=== PATIENT | female | born 1945 | race Caucasian/White ===

== ENCOUNTER 2017-10-13 07:00 | Inpatient (IN) | payer OTHER, BC ==
[2017-10-13] MEDS ORDERED: ceFAZolin SODIUM 1 GM VIAL ONE (07:08)
[2017-10-13] MEDS ORDERED: VANCOMYCIN 1,000 MG VIAL (RESTRICTED TO ID ONLY) ONE ×2 (07:08→09:28)
[2017-10-13] MEDS ORDERED: oxyCODONE HCL 10 MG SUSTAINED ACTING TABLET ONE (07:19)
[2017-10-13] MEDS ORDERED: CELECOXIB 200 MG CAPSULE ONE (07:19)
[2017-10-13 08:08] VITALS: BMI 34.9
[2017-10-13 08:18] LABS: INR 1.05 (0.82-1.09); PROTHROMBIN TIME (PATIENT) 11.7 SEC (10.2-13.0)
[2017-10-13] MEDS ORDERED: MIDAZOLAM HCL 2 MG/2 ML SINGLE DOSE VIAL ONE (08:48)
[2017-10-13] MEDS ORDERED: SODIUM CHLORIDE 0.9% P/F 10 ML VIAL IJ ONE (08:48)
[2017-10-13] MEDS ORDERED: DEXAMETHASONE SOD PHOSPHATE/PF 10 MG/ML SDV ONE (08:48)
[2017-10-13] MEDS ORDERED: ROPIVACAINE HCL 0.5% 30ML VIAL ONE (08:48)
[2017-10-13] MEDS ORDERED: ROPIVICAINE 0.2%/MORPH PF/KETOROLAC - 51ML DISP.SYRINGE IA ONE (09:15)
[2017-10-13] MEDS ORDERED: CELECOXIB 200 MG CAPSULE PO ONE (09:15)
[2017-10-13] MEDS ORDERED: CEFAZOLIN 2 GM in DEXTROSE 5%-WATER - 50 ML IVPB ONE (09:15)
[2017-10-13] MEDS ORDERED: TRANEXAMIC ACID 1000 MG/10 ML VIAL IVPUSH ONE (09:15)
[2017-10-13] MEDS ORDERED: VANCOMYCIN 500 MG in DEXTROSE 5%-WATER - 250 ML IVPB ONE (09:15)
[2017-10-13] MEDS ORDERED: oxyCODONE HCL 10 MG SUSTAINED ACTING TABLET PO ONE (09:15)
[2017-10-13] MEDS ORDERED: BUPIVACAINE HCL/PF 0.5% (5MG/ML) 10 ML VIAL ONE (09:36)
[2017-10-13] MEDS ORDERED: PROPOFOL 20 ML ONE ×2 (10:13)
[2017-10-13] MEDS ORDERED: BENZOIN/ALOE VERA/STORAX/TOLU 58 ML BOTTLE ONE (11:40)
[2017-10-13] MEDS ORDERED: ONDANSETRON 4 MG/2 ML VIAL IVPUSH PRN ×2 (12:28→12:34)
[2017-10-13] MEDS ORDERED: oxyCODONE HCL 5 MG TABLET PO PRN (12:28)
[2017-10-13] MEDS ORDERED: PROMETHAZINE HCL 25 MG/1 ML VIAL IVPUSH PRN (12:28)
--- NOTE | 2017-10-13 12:33 | OP ---
Operative Note - Note: Operative Date: 10/13/17 Pre-Operative Diagnosis: Right knee DJD Operation: Right total knee replacement Implants: [employer]. Femur - 4. Tibia - 4. Poly - 9mm, PS. Patella - 27mm Surgeon: Eric Paris [employer] Assessment: Vishal Paris Anesthesiologist/COUNTY SURVEYOR: Aram Massey Anesthesia: Spinal Specimens Removed: Bone, soft tissue Drains & Tubes with Location: [place], Right knee Operative Report Dictated: Yes
[2017-10-13] MEDS ORDERED: MAG HYDROX/AL HYDROX/SIMETH 30 ML UNIT-DOSE CUP PO PRN (12:34)
[2017-10-13] MEDS ORDERED: LACTATED RINGERS SOLUTION 1,000 ML IV SCH (12:45)
[2017-10-13] MEDS ORDERED: WARFARIN SODIUM 4 MG PO SCH (12:45)
[2017-10-13] MEDS: ACETAMINOPHEN 325 MG TABLET (FP) PO SCH ×2 (13:00→21:48)
--- NOTE | 2017-10-13 14:22 | HP ---
HISTORY OF PRESENT ILLNESS Patient is a 71 y/o female with a past medical history of OA, EVITA (bipap), asthma, protein c deficency, DVT, PE, (IVC filter on coumadin), and HLD. Patient is s/p right total knee replacement, POD #0, Dr Paris PCP: Dr Huggins miller distillery/oncologist: Dr Hernandez Recent travel: none Family History: non contributory to this admission Social History: resides at home Smoking: none Alcohol: none Drugs: none REVIEW OF SYSTEMS CONSTITUTIONAL: Absent: fever, chills, diaphoresis, generalized weakness, malaise, loss of appetite, weight change HEENT: Absent: rhinorrhea, nasal congestion, throat pain, throat swelling, difficulty swallowing, mouth swelling, ear pain, eye pain, visual changes CARDIOVASCULAR: Absent: chest pain, syncope, palpitations, irregular heart rate, lightheadedness , peripheral edema RESPIRATORY: Absent: cough, shortness of breath, dyspnea with exertion, orthopnea, wheezing, stridor, hemoptysis GASTROINTESTINAL: Absent: abdominal pain, abdominal distension, nausea, vomiting, diarrhea, constipation, melena, hematochezia GENITOURINARY: Absent: dysuria, frequency, urgency, hesitancy, hematuria, flank pain, genital pain MUSCULOSKELETAL: Present: right knee pain Absent: myalgia, arthralgia, joint swelling, back pain, neck pain SKIN: Absent: rash, itching, pallor HEMATOLOGIC/IMMUNOLOGIC: Absent: easy bleeding, easy bruising, lymphadenopathy, frequent infections ENDOCRINE: Absent: unexplained weight gain, unexplained weight loss, heat intolerance, cold intolerance NEUROLOGIC: Absent: headache, focal weakness or paresthesias, dizziness, unsteady gait, seizure, mental status changes, bladder or bowel incontinence PSYCHIATRIC: Absent: anxiety, depression, suicidal or homicidal ideation, hallucinations. PHYSICAL EXAMINATION: Vital Signs Temperature 97.9 F 10/13/17 13:10 Pulse Rate 54 L 10/13/17 13:10 Respiratory Rate 18 10/13/17 13:10 Blood Pressure 124/63 10/13/17 13:10 O2 Sat by Pulse Oximetry (%) 97 10/13/17 12:55 GENERAL: Awake, alert, and fully oriented, in no acute distress. HEAD: Normal with no signs of trauma. EYES: Pupils equal, round and reactive to light, extraocular movements intact, sclera anicteric, conjunctiva clear. No lid lag. EARS, NOSE, THROAT: Ears normal, nares patent, oropharynx clear without exudates. Moist mucous membranes. NECK: Normal range of motion, supple without lymphadenopathy, JVD, or masses. LUNGS: Breath sounds equal, clear to auscultation bilaterally. No wheezes, and no crackles. No accessory muscle use. HEART: Regular rate and rhythm, normal S1 and S2 without murmur, rub or gallop. ABDOMEN: Soft, nontender, not distended, normoactive bowel sounds, no guarding, no rebound, no masses. No hepatomegaly or splenomegaly. MUSCULOSKELETAL: Normal range of motion at all joints. No bony deformities or tenderness. No CVA tenderness. UPPER EXTREMITIES: 2+ pulses, warm, well-perfused. No cyanosis. No clubbing. No peripheral edema. LOWER EXTREMITIES: 2+ pulses, warm, well-perfused. No calf tenderness. No peripheral edema. RIGHT LOWER EXTREMITY: dressing CDI, hemovac noted, serrous sangenous drainage, scd/moshe, less than 3 second capillary refill, + 3 pedal pulse NEUROLOGICAL: Cranial nerves II-XII intact. Normal speech. Normal gait. PSYCHIATRIC: Cooperative. Good eye contact. Appropriate mood and affect. SKIN: Warm, dry, normal turgor, no rashes or lesions noted, normal capillary refill. Active Medications Generic Name Dose Route Start Last Admin Trade Name Freq PRN Reason Stop Dose Admin Acetaminophen 650 mg 10/13/17 20:00 Tylenol - PO 10/16/17 19:59 Q6H ANDREA Al Hydroxide/Mg Hydroxide 30 ml 10/13/17 12:34 Mylanta Oral Suspension - PO Q4H PRN DYSPEPSIA Enoxaparin Sodium 80 mg 10/14/17 10:00 Lovenox - SQ DAILY ANDREA Fentanyl 50 mcg 10/13/17 12:28 Sublimaze Injection - IVPUSH [id number] PRN PAIN Gabapentin 300 mg 10/13/17 22:00 Neurontin - PO BID ANDREA Cefazolin Sodium 2 gm/ 50 mls @ 200 mls/hr 10/13/17 18:00 Dextrose IVPB 10/14/17 02:14 Q8H-IV ANDREA Lactated Ringer's 1,000 mls @ 125 mls/hr 10/13/17 12:45 Lactated Ringers Solution IV 10/14/17 06:00 ASDIR ANDREA Magnesium Hydroxide 30 ml 10/13/17 12:34 Milk Of Magnesia - PO PRN PRN CONSTIPATION Montelukast Sodium 10 mg 10/13/17 22:00 Singulair - PO HS [facility] Non-Formulary Medication 4 mg 10/13/17 12:45 Warfarin Sodium [Warfarin Sodium] PO Q48H ANDREA Ondansetron HCl 4 mg 10/13/17 12:28 Zofran Injection IVPUSH Q6H PRN NAUSEA AND/OR VOMITING Ondansetron HCl 4 mg 10/13/17 12:34 Zofran Injection IVPUSH Q6H PRN NAUSEA Oxycodone HCl 10 mg 10/13/17 12:28 Roxicodone - PO Q3H PRN PAIN LEVEL 6-10 Oxycodone HCl 5 mg 10/13/17 12:28 Roxicodone - PO Q3H PRN PAIN LEVEL 1-5 Oxycodone HCl 10 mg 10/13/17 22:00 Oxycontin - PO 10/16/17 12:29 BID [facility] Pantoprazole Sodium 40 mg 10/14/17 10:00 Protonix - PO DAILY [facility] Promethazine HCl 12.5 mg 10/13/17 12:28 Phenergan Injection - IVPUSH Q6H PRN NAUSEA-FOR RESCUE AFTER 15 MIN Senna/Docusate Sodium 2 tablet 10/13/17 22:00 Pericolace - PO BID [facility] Warfarin Sodium 5 mg 10/13/17 22:00 Coumadin - PO HS [facility] ASSESSMENT/PLAN: 1) MS: right total knee replacement - prn pain medication - PT as per orthopedist - strict monitoring of hemovac 2) heme/onc protein c deficency - hx of dvt/pe with ivc filter, continue lovenox with bridge to coumadin - repeat inr in am 3) pulm evita - continue bipap at night asthma - no acute excerbation at this time - continue prn albuterol f/e/n - low sodium diet - replete lytes prn ppx - lovenox with coumadin bridge - protonix - scd/moshe - pt dispo: requires inpatient admission Visit type - Case Type Case Type: Scheduled Admission - Emergency Emergency Visit: No - New patient This patient is new to me today: Yes Date on this admission: 10/13/17 - Critical Care Critical Care patient: No
[2017-10-13] MEDS: CEFAZOLIN 2 GM/D5W 2 GM/50 ML ML IVPB SCH (17:31)
[2017-10-13] MEDS: oxyCODONE HCL 5 MG TABLET PO PRN ×2 (17:32→21:46)
[2017-10-13] MEDS: WARFARIN NA 5 MG TABLET (UD) PO SCH (17:32)
--- NOTE | 2017-10-13 20:21 | OP ---
DATE OF OPERATION: 10/13/2017 SURGEON: Eric Paris MD INFORMATION ASSISTANT: Vishal Paris MD PREOPERATIVE DIAGNOSIS: Tricompartment osteoarthritis, right knee. POSTOPERATIVE DIAGNOSIS: Tricompartment osteoarthritis, right knee. OPERATION PERFORMED: Right cemented posterior-stabilized total knee arthroplasty (Ona). ANESTHESIA: General. ANTIBIOTICS GIVEN: Kefzol 2 g, vancomycin 1 g preoperative; Kefzol 1 g given at the time of release of the tourniquet. TOURNIQUET TIME: 70 minutes. PROCEDURE: Patient correctly identified, brought to the operating room. Right lower extremity was prepped, free draped in the routine manner with Betadine scrub solution, wiped off with alcohol, DuraPrep applied. A fixed varus deformity of 20 degrees noted. Midline incision was utilized. Longitudinal incision made in the quadriceps tendon along the parapatellar margins the medial aspect of the tibial tubercle. The patella was capsized laterally. The patellar cut was made first from the patellar ligament to the quadriceps tendon. The severe tricompartment osteoarthritis readily noted. The cruciate ligaments were incised. The tibial cuts were made with the appropriate jig system. The measurement for femoral component was size 4 femur. Size 4 tibial baseplate was utilized. After the appropriate broaching and insertion of the proximal drill hole into the tibia, the bone bed was thoroughly lavaged, and all 3 components cemented into position. All extraneous cement was removed after cement had cured. That is, the patella which measured size 27 mm, femur size 4, tibia size 4, and a size 9 polyethylene posterior-stabilized polyethylene liner was inserted to the tibial tray at the end of all measurements. The wounds were thoroughly lavaged. All bone cuts were sent to the lab. The tissues were closed as follows: Quadriceps tendon 1 Vicryl, fascia 1 Vicryl, subcutaneous 1 and 2-0 Vicryl, skin 3-0 Monocryl with Steri-Strips. No drains. Operation went well, no complications. Postoperative x-rays revealed excellent alignment and positioning of the implants. MD EMERITA England/[id number]
[2017-10-13] MEDS: SENNOSIDES/DOCUSATE COMBO (SENNA PLUS) TABLET (UD) PO SCH (21:47)
[2017-10-13] MEDS: oxyCODONE HCL 10 MG SUSTAINED ACTING TABLET PO SCH (21:47)
[2017-10-13] MEDS: GABAPENTIN 300 MG CAPSULE (FP) PO SCH (21:47)
[2017-10-13] MEDS: MONTELUKAST NA 10 MG TABLET PO SCH (21:47)
[2017-10-14] MEDS: CEFAZOLIN 2 GM/D5W 2 GM/50 ML ML IVPB SCH (02:00)
[2017-10-14] MEDS: ACETAMINOPHEN 325 MG TABLET (FP) PO SCH ×5 (02:00→20:15)
[2017-10-14] MEDS ORDERED: PT OWN MED DRAWER 7, Y5N ONE (05:46)
[2017-10-14] MEDS: oxyCODONE HCL 5 MG TABLET PO PRN ×2 (06:59→21:13)
--- NOTE | 2017-10-14 08:35 | PN ---
Physical Exam: SUBJECTIVE: Patient seen and examined, sitting in bedside chair, reports minimal pain to the right lower extremity denies any chest pain or shortness of breath. OBJECTIVE:Patient is a 71 y/o female with a past medical history of OA, GRISELDA ( bipap), asthma, protein c deficiency, DVT, PE, (IVC filter on coumadin), and HLD. Patient is s/p right total knee replacement, POD #1, Dr Paris Vital Signs Period Temp Pulse Resp BP Sys/Núñez Pulse Ox Last 24 Hr 97.7 F-98.7 F 52-73 16-19 103-140/58-73 93-98 Intake & Output 10/13/17 10/14/17 10/14/17 23:59 07:59 15:59 Intake Total 1800 Output Total 840 200 Balance 960 -200 Intake: IV 750 Lactated Ringers Solution 750 1,000 ml @ 125 mls/hr IV ASDIR ANDREA Rx#: [id number] IVPB 50 Oral 1000 Output: Drainage 240 200 Right Knee 240 200 Urine 600 Void 600 Other: Voiding Method Toilet Toilet Toilet # Unmeasured Voids Void 1 GENERAL: The patient is awake, alert, and fully oriented, in no acute distress. HEAD: Normal with no signs of trauma. EYES: PERRL, extraocular movements intact, sclera anicteric, conjunctiva clear. No ptosis. ENT: Ears normal, nares patent, oropharynx clear without exudates, moist mucous membranes. NECK: Trachea midline, full range of motion, supple. LUNGS: Breath sounds equal, clear to auscultation bilaterally, no wheezes, no crackles, no accessory muscle use. HEART: Regular rate and rhythm, S1, S2 without murmur, rub or gallop. ABDOMEN: Soft, nontender, nondistended, normoactive bowel sounds, no guarding, no rebound, no hepatosplenomegaly, no masses. EXTREMITIES: 2+ pulses, warm, well-perfused, no edema. RIGHT LOWER EXTREMITY: scant blood noted to dressing, hemovac serrous drainage noted NEUROLOGICAL: Cranial nerves II through XII grossly intact. Normal speech, gait not observed. PSYCH: Normal mood, normal affect. SKIN: Warm, dry, normal turgor, no rashes or lesions noted CBC WBC 10.6 K/mm3 (4.0-10.8) 10/14/17 08:00 RBC 4.24 M/mm3 (3.60-5.2) 10/14/17 08:00 Hgb 12.2 GM/dl (10.7-15.3) 10/14/17 08:00 Hct 37.5 % (32.4-45.2) 10/14/17 08:00 MCV 88.6 fl (80-96) 10/14/17 08:00 MCH 28.8 pg (25.7-33.7) 10/14/17 08:00 MCHC 32.5 g/dl (32.0-36.0) 10/14/17 08:00 RDW 13.5 % (11.6-15.6) 10/14/17 08:00 Plt Count 176 K/MM3 (134-434) 10/14/17 08:00 MPV 9.1 fl (7.5-11.1) 10/14/17 08:00 Active Medications Generic Name Dose Route Start Last Admin Trade Name Chivoq PRN Reason Stop Dose Admin Acetaminophen 650 mg 10/13/17 20:00 10/14/17 08:29 Tylenol - PO 10/16/17 19:59 Not Given Q6H ANDREA Al Hydroxide/Mg Hydroxide 30 ml 10/13/17 12:34 Mylanta Oral Suspension - PO Q4H PRN DYSPEPSIA Enoxaparin Sodium 80 mg 10/14/17 10:00 Lovenox - SQ DAILY ANDREA Fentanyl 50 mcg 10/13/17 12:28 Sublimaze Injection - IVPUSH [id number] PRN PAIN Gabapentin 300 mg 10/13/17 22:00 10/13/17 21:47 Neurontin - PO 300 mg BID ANDREA Administration Magnesium Hydroxide 30 ml 10/13/17 12:34 Milk Of Magnesia - PO PRN PRN CONSTIPATION Montelukast Sodium 10 mg 10/13/17 22:00 10/13/17 21:47 Singulair - PO 10 mg HS ANDREA Administration Ondansetron HCl 4 mg 10/13/17 12:28 Zofran Injection IVPUSH Q6H PRN NAUSEA AND/OR VOMITING Ondansetron HCl 4 mg 10/13/17 12:34 Zofran Injection IVPUSH Q6H PRN NAUSEA Oxycodone HCl 10 mg 10/13/17 12:28 10/14/17 06:59 Roxicodone - PO 10 mg Q3H PRN Administration PAIN LEVEL 6-10 Oxycodone HCl 5 mg 10/13/17 12:28 Roxicodone - PO Q3H PRN PAIN LEVEL 1-5 Oxycodone HCl 10 mg 10/13/17 22:00 10/13/17 21:47 Oxycontin - PO 10/16/17 12:29 10 mg BID ANDREA Administration Pantoprazole Sodium 40 mg 10/14/17 10:00 Protonix - PO DAILY ANDREA Promethazine HCl 12.5 mg 10/13/17 12:28 Phenergan Injection - IVPUSH Q6H PRN NAUSEA-FOR RESCUE AFTER 15 MIN Senna/Docusate Sodium 2 tablet 10/13/17 22:00 10/13/17 21:47 Pericolace - PO 2 tablet BID ANDREA Administration Warfarin Sodium 5 mg 10/13/17 18:00 10/13/17 17:32 Coumadin - PO 5 mg DAILY@1800 ANDREA Administration ASSESSMENT/PLAN: 1) MS: right total knee replacement, POD #1 - prn pain medication - PT as per orthopedist - hemovac drainage 200ml on the overnight, hgb 10 stable, close monitoring of CBC 2) heme/onc protein c deficency - hx of dvt/pe with ivc filter, continue lovenox with bridge to coumadin - inr 1.1, continue coumadin 5mg and lovenox, repeat inr in AM 3) pulm griselda - continue bipap at night asthma - no acute excerbation at this time - continue prn albuterol f/e/n - low sodium diet - replete lytes prn ppx - lovenox with coumadin bridge - protonix - scd/moshe - pt dispo: requires inpatient admission Visit type - Emergency Visit Emergency Visit: No - New Patient This patient is new to me today: No - Critical Care Critical Care patient: No - Discharge Referral Referred to [facility] Med P.C[facility] No
[2017-10-14 08:44] LABS: ANION GAP 8 (8-16); BLOOD UREA NITROGEN 19 mg/dl (7-18); CALCIUM 8.7 mg/dl (8.4-10.2); CHLORIDE 103 mmol/L (98-107); CO2 26 mmol/L (22-28); CREATININE 0.7 mg/dl (0.6-1.3); GLUCOSE,RANDOM 136 mg/dl (74-106); POTASSIUM 4.4 mmol/L (3.5-5.1); SODIUM 137 mmol/L (136-145)
[2017-10-14] MEDS: SENNOSIDES/DOCUSATE COMBO (SENNA PLUS) TABLET (UD) PO SCH ×2 (09:08→21:14)
[2017-10-14] MEDS: PANTOPRAZOLE 40 MG TABLET (FP) PO SCH (09:08)
[2017-10-14] MEDS: GABAPENTIN 300 MG CAPSULE (FP) PO SCH ×2 (09:08→21:12)
[2017-10-14] MEDS: oxyCODONE HCL 10 MG SUSTAINED ACTING TABLET PO SCH ×2 (09:08→21:13)
[2017-10-14] MEDS: ENOXAPARIN NA (PORCINE) 80 MG/0.8 ML DISP.SYRIN SQ SCH (09:09)
[2017-10-14 09:10] LABS: HEMATOCRIT 37.5 % (32.4-45.2); HEMOGLOBIN 12.2 GM/dl (10.7-15.3); MCH 28.8 pg (25.7-33.7); MCHC 32.5 g/dl (32.0-36.0); MEAN CELL VOLUME 88.6 fl (80-96); MEAN PLT VOLUME 9.1 fl (7.5-11.1); PLATELET COUNT 176 K/MM3 (134-434); RBC 4.24 M/mm3 (3.60-5.2); RDW 13.5 % (11.6-15.6); WHITE BLOOD COUNT 10.6 K/mm3 (4.0-10.8)
[2017-10-14 09:12] LABS: INR 1.14 (0.82-1.09); PROTHROMBIN TIME (PATIENT) 12.7 SEC (10.2-13.0)
--- NOTE | 2017-10-14 11:02 | PN ---
Progress Note (short form) - Note Progress Note: 71F POD1 s/p right TKR under spinal anesthetic with peripheral nerve blocks for post operative pain control. Pain is well controlled, reports no anesthetic complications. Sensory and motor function intact in bilateral lower extremities.
[2017-10-14] MEDS: WARFARIN NA 5 MG TABLET (UD) PO SCH (17:33)
[2017-10-14] MEDS: MAGNESIUM HYDROX 2400MG/30ML ORAL SUSPENSION 30 ML CUP PO PRN (17:34)
[2017-10-14] MEDS: MONTELUKAST NA 10 MG TABLET PO SCH (21:14)
[2017-10-15] MEDS: ACETAMINOPHEN 325 MG TABLET (FP) PO SCH ×4 (01:13→20:50)
[2017-10-15] MEDS: oxyCODONE HCL 5 MG TABLET PO PRN ×3 (07:27→16:19)
[2017-10-15 08:46] LABS: HEMATOCRIT 33.8 % (32.4-45.2); HEMOGLOBIN 11.5 GM/dl (10.7-15.3); MCH 30.3 pg (25.7-33.7); MCHC 34.1 g/dl (32.0-36.0); MEAN PLT VOLUME 9.3 fl (7.5-11.1); PLATELET COUNT 165 K/MM3 (134-434); RDW 13.7 % (11.6-15.6); WHITE BLOOD COUNT 7.7 K/mm3 (4.0-10.8)
[2017-10-15] MEDS: PANTOPRAZOLE 40 MG TABLET (FP) PO SCH (09:06)
[2017-10-15] MEDS: MAGNESIUM HYDROX 2400MG/30ML ORAL SUSPENSION 30 ML CUP PO PRN ×2 (09:06→18:57)
[2017-10-15] MEDS: SENNOSIDES/DOCUSATE COMBO (SENNA PLUS) TABLET (UD) PO SCH ×2 (09:07→21:28)
[2017-10-15] MEDS: ENOXAPARIN NA (PORCINE) 80 MG/0.8 ML DISP.SYRIN SQ SCH (09:07)
[2017-10-15] MEDS: GABAPENTIN 300 MG CAPSULE (FP) PO SCH ×2 (09:07→21:29)
--- NOTE | 2017-10-15 10:46 | PN ---
Physical Exam: SUBJECTIVE: Patient seen and examined OBJECTIVE: Vital Signs Period Temp Pulse Resp BP Sys/Núñez Pulse Ox Last 24 Hr 97.8 F-98.9 F 57-61 18-20 120-129/57-64 94-96 GENERAL: The patient is awake, alert, and fully oriented, in no acute distress. HEAD: Normal with no signs of trauma. EYES: PERRL, extraocular movements intact, sclera anicteric, conjunctiva clear. No ptosis. ENT: Ears normal, nares patent, oropharynx clear without exudates, moist mucous membranes. NECK: Trachea midline, full range of motion, supple. LUNGS: Breath sounds equal, clear to auscultation bilaterally, no wheezes, no crackles, no accessory muscle use. HEART: Regular rate and rhythm, S1, S2 without murmur, rub or gallop. ABDOMEN: Soft, nontender, nondistended, normoactive bowel sounds, no guarding, no rebound, no hepatosplenomegaly, no masses. EXTREMITIES: 2+ pulses, warm, well-perfused, no edema. NEUROLOGICAL: Cranial nerves II through XII grossly intact. Normal speech, gait not observed. PSYCH: Normal mood, normal affect. SKIN: Warm, dry, normal turgor, no rashes or lesions noted Laboratory Results - last 24 hr 10/15/17 07:55 WBC 7.7 RBC 3.80 Hgb 11.5 Hct 33.8 MCV 89.0 MCH 30.3 MCHC 34.1 RDW 13.7 Plt Count 165 MPV 9.3 Active Medications Generic Name Dose Route Start Last Admin Trade Name Freq PRN Reason Stop Dose Admin Acetaminophen 650 mg 10/13/17 20:00 10/15/17 07:28 Tylenol - PO 10/16/17 19:59 650 mg Q6H ANDREA Administration Al Hydroxide/Mg Hydroxide 30 ml 10/13/17 12:34 Mylanta Oral Suspension - PO Q4H PRN DYSPEPSIA Enoxaparin Sodium 80 mg 10/14/17 10:00 10/15/17 09:07 Lovenox - SQ 80 mg DAILY ANDREA Administration Fentanyl 50 mcg 10/13/17 12:28 Sublimaze Injection - IVPUSH [id number] PRN PAIN Gabapentin 300 mg 10/13/17 22:00 10/15/17 09:07 Neurontin - PO 300 mg BID ANDREA Administration Magnesium Hydroxide 30 ml 10/13/17 12:34 10/15/17 09:06 Milk Of Magnesia - PO 30 ml PRN PRN Administration CONSTIPATION Montelukast Sodium 10 mg 10/13/17 22:00 10/14/17 21:14 Singulair - PO 10 mg HS ANDREA Administration Ondansetron HCl 4 mg 10/13/17 12:28 Zofran Injection IVPUSH Q6H PRN NAUSEA AND/OR VOMITING Ondansetron HCl 4 mg 10/13/17 12:34 Zofran Injection IVPUSH Q6H PRN NAUSEA Oxycodone HCl 10 mg 10/13/17 12:28 10/15/17 07:27 Roxicodone - PO 10 mg Q3H PRN Administration PAIN LEVEL 6-10 Oxycodone HCl 5 mg 10/13/17 12:28 Roxicodone - PO Q3H PRN PAIN LEVEL 1-5 Oxycodone HCl 10 mg 10/13/17 22:00 10/14/17 21:13 Oxycontin - PO 10/16/17 12:29 10 mg BID ANDREA Administration Pantoprazole Sodium 40 mg 10/14/17 10:00 10/15/17 09:06 Protonix - PO 40 mg DAILY ANDREA Administration Promethazine HCl 12.5 mg 10/13/17 12:28 Phenergan Injection - IVPUSH Q6H PRN NAUSEA-FOR RESCUE AFTER 15 MIN Senna/Docusate Sodium 2 tablet 10/13/17 22:00 10/15/17 09:07 Pericolace - PO 2 tablet BID ANDREA Administration Warfarin Sodium 5 mg 10/13/17 18:00 10/14/17 17:33 Coumadin - PO 5 mg DAILY@1800 ANDREA Administration ASSESSMENT/PLAN:
[2017-10-15] MEDS ORDERED: ONDANSETRON *ODT* 4 MG TABLET SL PRN (12:14)
--- NOTE | 2017-10-15 12:56 | PATH ---
Surgical Pathology Report Patient Name: NOEL JACOBSON Med. Rec. #: [id number] /Age/Gender: 1945 (Age: 71) / F Account: [id number] Location: [facility] MED-SURG Taken: 10/13/2017 Received: 10/13/2017 Reported: 10/15/2017 Physicians: Eric Paris M.D. Specimen(s) Received RIGHT KNEE BONE AND TISSUE Clinical History Right knee osteoarthritis Final Diagnosis KNEE, RIGHT, BONE AND TISSUE, TOTAL KNEE REPLACEMENT: BONE AND CARTILAGE WITH DEGENERATIVE JOINT DISEASE. CHRONIC SYNOVITIS. Electronically Signed Anastasia López M.D. Gross Description Received in formalin labeled "right knee bones and tissue," is a 12.0 x 10.0 x 2.1 cm aggregate of multiple frazier, irregular portions of bone and soft tissue. The tibial plateau measures 7.5 x 5.0 x 1.8 cm. There is a 2.2 cm greatest dimension area of eburnation present. The remaining articular surfaces are frazier-yellow and diffusely granular. The underlying trabecular bone is yellow and hard. English Tutor sections are submitted in one cassette, following decalcification. 10/14/201710/14/2017
--- NOTE | 2017-10-15 14:05 | DS ---
Physical Exam: SUBJECTIVE: Patient seen and examined OBJECTIVE:Patient is a 71 y/o female with a past medical history of OA, GRISELDA ( bipap), asthma, protein c deficency, DVT, PE, (IVC filter on coumadin), and HLD. Patient is s/p right total knee replacement, 10/13/17 Dr Paris PCP: Dr Huggins customs verifier/oncologist: Dr Hernandez Vital Signs Temperature 98.9 F 10/15/17 06:00 Pulse Rate 61 10/15/17 06:00 Respiratory Rate 20 10/15/17 06:00 Blood Pressure 129/57 10/15/17 06:00 O2 Sat by Pulse Oximetry (%) 94 L 10/15/17 06:00 PHYSICAL EXAM GENERAL: The patient is awake, alert, and fully oriented, in no acute distress. HEAD: Normal with no signs of trauma. EYES: PERRL, extraocular movements intact, sclera anicteric, conjunctiva clear. No ptosis. ENT: Ears normal, nares patent, oropharynx clear without exudates, moist mucous membranes. NECK: Trachea midline, full range of motion, supple. LUNGS: Breath sounds equal, clear to auscultation bilaterally, no wheezes, no crackles, no accessory muscle use. HEART: Regular rate and rhythm, S1, S2 without murmur, rub or gallop. ABDOMEN: Soft, nontender, nondistended, normoactive bowel sounds, no guarding, no rebound, no hepatosplenomegaly, no masses. EXTREMITIES: 2+ pulses, warm, well-perfused, no edema. RIGHT LOWER EXTREMITY: scant blood noted to dressing, hemovac serrous drainage noted NEUROLOGICAL: Cranial nerves II through XII grossly intact. Normal speech, gait not observed. PSYCH: Normal mood, normal affect. SKIN: Warm, dry, normal turgor, no rashes or lesions noted LABS CBC,CMP WBC 7.7 K/mm3 (4.0-10.8) 10/15/17 07:55 RBC 3.80 M/mm3 (3.60-5.2) 10/15/17 07:55 Hgb 11.5 GM/dl (10.7-15.3) 10/15/17 07:55 Hct 33.8 % (32.4-45.2) 10/15/17 07:55 MCV 89.0 fl (80-96) 10/15/17 07:55 MCH 30.3 pg (25.7-33.7) 10/15/17 07:55 MCHC 34.1 g/dl (32.0-36.0) 10/15/17 07:55 RDW 13.7 % (11.6-15.6) 10/15/17 07:55 Plt Count 165 K/MM3 (134-434) 10/15/17 07:55 MPV 9.3 fl (7.5-11.1) 10/15/17 07:55 Sodium 137 mmol/L (136-145) 10/14/17 08:00 Potassium 4.4 mmol/L (3.5-5.1) 10/14/17 08:00 Chloride 103 mmol/L (98-107) 10/14/17 08:00 Carbon Dioxide 26 mmol/L (22-28) 10/14/17 08:00 Anion Gap 8 (8-16) 10/14/17 08:00 BUN 19 mg/dl (7-18) H 10/14/17 08:00 Creatinine 0.7 mg/dl (0.6-1.3) 10/14/17 08:00 Random Glucose 136 mg/dl (74-106) H 10/14/17 08:00 Calcium 8.7 mg/dl (8.4-10.2) 10/14/17 08:00 HOSPITAL COURSE: The patient was admitted to the Med-Surg Unit after an right total knee replacment. On post op day 1, the patient ambulated the hallways with assistance of physcial therapy. Narcotic and non-narcotic pain management control was achieved with an oral and IV approach. POD #2, the surgical drain was removed fully intact and without incident. Carly-operative IV ABX were administered. Patient has a history of protein c deficency, DVT and PE, coumadin was restarted on post op day 0, with lovenox. The discharge instructions and an oral pain management plan were reviewed with the patient. All questions answered. Above plan discussed with Dr. Paris and agreed. PLAN - discharge to SNF for short term rehab - continue lovenox with a bridge to coumadin Date of Admission:10/13/17 Date of Discharge: 10/15/17 Minutes to complete discharge: 45 Visit type - Case Type Case Type: Scheduled Admission - Emergency Emergency Visit: No - New patient This patient is new to me today: No - Critical Care Critical Care patient: No
[2017-10-15 14:47] LABS: INR 1.17 (0.82-1.09); PROTHROMBIN TIME (PATIENT) 13.1 SEC (10.2-13.0)
[2017-10-15] MEDS: WARFARIN NA 5 MG TABLET (UD) PO SCH (18:57)
[2017-10-15] MEDS: MONTELUKAST NA 10 MG TABLET PO SCH (21:28)
[2017-10-15] MEDS: oxyCODONE HCL 10 MG SUSTAINED ACTING TABLET PO SCH (21:28)
[2017-10-16] MEDS: ACETAMINOPHEN 325 MG TABLET (FP) PO SCH ×2 (01:35→09:02)
[2017-10-16 06:51] VITALS: BP 128/79; PULSE 75; TEMP 99.7
[2017-10-16] MEDS: ENOXAPARIN NA (PORCINE) 80 MG/0.8 ML DISP.SYRIN SQ SCH (09:02)
[2017-10-16] MEDS: PANTOPRAZOLE 40 MG TABLET (FP) PO SCH (09:02)
[2017-10-16] MEDS: SENNOSIDES/DOCUSATE COMBO (SENNA PLUS) TABLET (UD) PO SCH (09:03)
[2017-10-16] MEDS: GABAPENTIN 300 MG CAPSULE (FP) PO SCH (09:03)
[2017-10-16] MEDS ORDERED: ENOXAPARIN NA (PORCINE) 80 MG/0.8 ML DISP.SYRIN SQ SCH (10:30)
--- NOTE | 2017-10-16 10:36 | PN ---
Physical Exam: SUBJECTIVE: Patient seen and examined She is scheduled for discharge to rehab today. She is doing well, still with some pain at the operative site, but doing the exercises as instructed and took tylenol this am for pain. No acute complaints other than soreness at the surgical site in the right knee. OBJECTIVE: Vital Signs Period Temp Pulse Resp BP Sys/Núñez Pulse Ox Last 24 Hr 99.0 F-99.7 F 60-75 18-18 118-128/58-79 92-100 GENERAL: The patient is awake, alert, and fully oriented, in no acute distress. HEAD: Normal with no signs of trauma. EYES: PERRL, extraocular movements intact, sclera anicteric, conjunctiva clear. No ptosis. ENT: Ears normal, nares patent, oropharynx clear without exudates, moist mucous membranes. NECK: Trachea midline, full range of motion, supple. LUNGS: Breath sounds equal, clear to auscultation bilaterally, no wheezes, no crackles, no accessory muscle use. No pain on deep inspiration. HEART: Regular rate and rhythm, S1, S2 without murmur, rub or gallop. ABDOMEN: Soft, nontender, nondistended, normoactive bowel sounds, no guarding, no rebound, no hepatosplenomegaly, no masses. EXTREMITIES: 2+ pulses, warm, well-perfused. R knee with dressing in place, clean and dry, drain was removed yesterday. NEUROLOGICAL: Cranial nerves II through XII grossly intact. Normal speech, gait not observed. Patient demonstrated ability to do range of motion exercise of R knee and leg for me PSYCH: Normal mood, normal affect. SKIN: Warm, dry, normal turgor, no erythema or warmth at the surgical site R knee Laboratory Results - last 24 hr 10/15/17 11:11 PT with INR 13.1 H INR 1.17 Active Medications Generic Name Dose Route Start Last Admin Trade Name Freq PRN Reason Stop Dose Admin Acetaminophen 650 mg 10/13/17 20:00 10/16/17 09:02 Tylenol - PO 10/16/17 19:59 650 mg Q6H ANDREA Administration Al Hydroxide/Mg Hydroxide 30 ml 10/13/17 12:34 Mylanta Oral Suspension - PO Q4H PRN DYSPEPSIA Enoxaparin Sodium 80 mg 10/16/17 10:30 Lovenox - SQ BID ANDREA Fentanyl 50 mcg 10/13/17 12:28 Sublimaze Injection - IVPUSH [id number] PRN PAIN Gabapentin 300 mg 10/13/17 22:00 10/16/17 09:03 Neurontin - PO 300 mg BID ANDREA Administration Magnesium Hydroxide 30 ml 10/13/17 12:34 10/15/17 18:57 Milk Of Magnesia - PO 30 ml PRN PRN Administration CONSTIPATION Montelukast Sodium 10 mg 10/13/17 22:00 10/15/17 21:28 Singulair - PO 10 mg HS ANDREA Administration Ondansetron HCl 4 mg 10/13/17 12:28 Zofran Injection IVPUSH Q6H PRN NAUSEA AND/OR VOMITING Ondansetron HCl 4 mg 10/13/17 12:34 Zofran Injection IVPUSH Q6H PRN NAUSEA Ondansetron HCl 4 mg 10/15/17 12:14 Zofran Odt - SL Q8H PRN NAUSEA AND/OR VOMITING Oxycodone HCl 5 mg 10/13/17 12:28 Roxicodone - PO Q3H PRN PAIN LEVEL 1-5 Oxycodone HCl 10 mg 10/13/17 22:00 10/15/17 21:28 Oxycontin - PO 10/16/17 12:29 10 mg BID ANDREA Administration Pantoprazole Sodium 40 mg 10/14/17 10:00 10/16/17 09:02 Protonix - PO 40 mg DAILY ANDREA Administration Promethazine HCl 12.5 mg 10/13/17 12:28 Phenergan Injection - IVPUSH Q6H PRN NAUSEA-FOR RESCUE AFTER 15 MIN Senna/Docusate Sodium 2 tablet 10/13/17 22:00 10/16/17 09:03 Pericolace - PO 2 tablet BID ANDREA Administration Warfarin Sodium 5 mg 10/13/17 18:00 10/15/17 18:57 Coumadin - PO 5 mg DAILY@1800 ANDREA Administration ASSESSMENT/PLAN: 1. Post op day #2 R TKR Wound looks good No signs of infection or bleeding Stable for discharge today to rehab 2. DVT prophylaxis patient with hx of DVT on coumadin pre-op coumadin restarted at 5 mg daily INR yesterday 1.2 recommend daily INR at [facility] until therapeutic patient on lovenox 80 QD discussed risks and benefits of full dose lovenox given very high risk with hx or DVT and protein C deficiency, best balance of risks and benefits is full dose lovenox 80 BID, slight increase in risk of post op bleeding is mild at this stage post op, and patient is very high risk for DVT. Discussed with Dr. Vishal Paris. Plan to increase lovenox to 80 q12 and to have anticoagulation managed closely at [facility]. Visit type - Emergency Visit Emergency Visit: No - New Patient This patient is new to me today: Yes Date on this admission: 10/16/17 - Critical Care Critical Care patient: No - Discharge Referral Referred to [facility] No
[2017-10-16] MEDS: oxyCODONE HCL 10 MG SUSTAINED ACTING TABLET PO SCH (10:38)
== END 2017-10-16 12:04 | DRG 470 ==
LOC: FM/S 07:00
PROVIDERS: ADMIT Internal Medicine; ATTEND Orthopaedic Surgery Orthopaedic Surgery of the Spine
PROC: 0SRC0L9 Replacement of Right Knee Joint with Medial Unicondylar Synthetic Substitute, Cemented, Open Approach (ICD-10-PCS; principal; 2017-10-13 10:24)
DX: M17.11 Unilateral primary osteoarthritis, right knee (principal); D68.59 Other primary thrombophilia; E78.5 Hyperlipidemia, unspecified; G47.33 Obstructive sleep apnea (adult) (pediatric)
CPT/HCPCS: 36415; 73560-TC-RT; 80048; 85027; 85610; 88304-TC; 88311-TC; 94010; 94760; 97116-GP; 97162-GP